=== PATIENT | male | born 2000 | race Asian ===

== ENCOUNTER 2024-01-26 18:28 | Emergency (ER) | payer OTHER, SELFPAY ==
[2024-01-26] VITALS (28 sets, daily range): BP systolic 128–137; BP diastolic 75–91; PULSE 94–130; RESP 20–56; TEMP 37.5; O2SAT 88–100
--- NOTE | ~2024-01-26 | CT_ITS ---
EXAMINATION: CTA chest PE abdomen pel DATE: 01/26/2024 21:14 INDICATION: Hemoptysis TECHNIQUE: Computed tomography (CT) pulmonary angiogram of the chest was performed with 100 mL Omnipa que-350 intravenous contrast. Additional 3D reconstructions utilizing coronal maximum intensity proje ction (MIP) were performed. CT of the abdomen and pelvis was performed with intravenous contrast util izing the same contrast bolus following a short delay. Automated exposure control and iterative recon struction technique were employed. The dose-length product was 1110.37 mGy-cm. COMPARISON: None FINDINGS: Chest: No evident pulmonary embolism. Sensitivity mildly decreased in the smaller subsegmental pulmonary art eries due to suboptimal timing of the contrast bolus. No pneumonia, pulmonary edema, pleural effusion or pneumothorax. Heart size is normal. No pericardial effusion. Thoracic aorta is normal in caliber with no dissection. No pathologically enlarged thoracic lymphadenopathy. Mild likely physiologic ante rior wedging at T11-L2. Abdomen/pelvis: Liver, gallbladder, spleen, pancreas, bilateral adrenal glands and kidneys are normal. There is some wall thickening in the proximal colon consistent with constipation. There is a large amount of fluid scattered throughout the colon extending to the rectum consistent with diarrhea. No bowel obstruction . Normal appendix. Bladder is normal. No free intraperitoneal gas or fluid. There are enlarged lymph nodes along the ileocolic chain the largest measuring 2.9 x 1.6 cm in maximal diameter. IMPRESSION: 1. No pulmonary embolism or other acute cardiopulmonary disease. 2. Wall thickening of the proximal colon suggestive of colitis with large amount of fluid throughout the colon consistent with diarrhea. 3. Ileocolic chain lymphadenopathy in the right abdomen most likely reactive related to colitis with differential including less likely lymphoma or metastatic disease. Reviewed, dictated and finalized at location A. IMPRESSION: 1. No pulmonary embolism or other acute cardiopulmonary disease. 2. Wall thickening of the proximal colon suggestive of colitis with large amoun t of fluid throughout the colon consistent with diarrhea. 3. Ileocolic chain lymphadenopathy in the right abdomen most likely reactive re lated to colitis with differential including less likely lymphoma or metastatic disease.
--- NOTE | ~2024-01-26 | CT_ITS ---
EXAMINATION: CT brain wo con DATE: 01/26/2024 21:04 INDICATION: Altered mental status TECHNIQUE: Computed tomography (CT) of the head was performed without intravenous contrast. Sagittal and coronal reconstructions were performed. The mA was adjusted according to patient size. Iterative reconstruction technique was employed. The dose-length product was 1110.37 mGy-cm. COMPARISON: None FINDINGS: No acute intracranial hemorrhage, acute infarction or abnormal extra axial fluid collection. Ventricl es are normal and symmetric. No mass/mass effect. Mild mucosal thickening in the left maxillary sinus . The orbits and mastoid air cells are normal. IMPRESSION: 1. Normal brain. No acute intracranial process. Reviewed, dictated and finalized at location A.
--- NOTE | 2024-01-26 19:00 | ECG_ITS ---
Test Date: 2024-01-26 19:15:38 Measurements Intervals [place] Rate: 105 P: 56 DC: 127 QRS: 16 QRSD: 107 T: 34 QT: 340 QTc: 450 Interpretive Statements SINUS TACHYCARDIA EARLY PRECORDIAL R/S TRANSITION MINIMAL Q WAVES- HIGH LATERAL LEADS BASELINE ARTIFACT- I, II, AVR, AVL, AVF, V1-V2 ABNORMAL ECG No previous ECG available for comparison Electronically Signed On 01-27-2024 08:00:40 CDT by Jamie Lan D.O.
--- NOTE | 2024-01-26 19:03 | ED.NAVMDI ---
HPI - Nausea/Vomiting/Diarrhea General Chief complaint: Nausea/Vomiting/Diarrhea <JULES Ramirez Last Filed: 01/30/24 09:11> Stated complaint: n/v/d, fever <Pat Mccormick PA-C - Last Filed: 01/30/24 09:11> Time Seen by Provider: 01/26/24 18:30 <Pat Mccormick PA-C - Last Filed: 01/30/24 09:11> History of Present Illness HPI Narrative: 23-year-old male with no past medical history presents to the emergency department with his roommates at bedside for diarrhea for 4 days. Patient is a poor historian. Remains assist with history at bedside. States he has had copious amounts of watery diarrhea for 4 days. He went to the [facility] where he had an outpatient stool sample performed. Unknown of the results. states he was prescribed an antibiotic but is unsure the name of the antibiotic. He is also reporting hemoptysis, subjective fevers, left midback pain when he takes a deep breath and moves. He is reporting generalized weakness. roommate's at bedside also note that the patient has been slow to respond today which is new. patient denies ETOH use, drug use, head injury trauma. Denies vision changes, focal numbness or weakness, chest pain shortness of breath. <Pat Mccormick PA-C - Last Filed: 01/30/24 09:11> Related Data Allergies/Adverse reactions: Allergies Allergy/AdvReac Type Severity Reaction Status Date / Time No Known Allergies Allergy Verified 01/26/24 19:00 <Pat Mccormick PA-C - Last Filed: 01/30/24 09:11> Review of Systems Review of Systems: All systems as dictated in HPI <JULES Aguilera Last Filed: 01/27/24 01:57> Exam Narrative: GENERAL: Nontoxic, NAD HEAD: Normocephalic, atraumatic. EYES: PERRLA and EOMI. ENT: Nares clear, no rhinorrhea or epistaxis. Mucous membranes dry NECK: Supple. No nuchal rigidity CHEST: Clear to auscultation. No respiratory distress. HEART: Regular rate and rhythm. No murmur heard. Normal peripheral pulses. ABDOMEN: normoactive bowel sounds. Abdomen soft with minimal tenderness in epigastrium. No rebound guarding rigidity. No CVA tenderness EXTREMITIES: Normal range of motion. No edema. SKIN: Warm, dry, no rash. NEURO: No focal deficits. Alert and oriented x3. Patient very slow to respond, speech is slowed <Pat Mccormick PA-C - Last Filed: 01/30/24 09:11> Course Course Emergency Course: Patient declines use of insurance healthcare consultant. I discussed that I wanted to ensure that we were both understanding each other, he again declines and states I can speak Romanian. <Pat Mccormick PA-C - Last Filed: 01/30/24 09:11> Patient declines use of insurance healthcare consultant. I discussed that I wanted to ensure that we were both understanding each other, he again declines and states I can speak Romanian. [place]: Lab work is coming back remarkable for significant non-anion gap metabolic acidosis, likely due to GI losses. This would explain his altered mental status and tachypnea. CTA chest abdomen pelvis coming back remarkable for severe colitis and reactive lymphadenopathy. The CT scan of the lungs are clear. moderate elevations in AST and ALT. Alk-phos is normal. Potassium is 3.1, potassium repletion started along with sepsis antibiotics. Head CT is normal We will contact [facility] transfer line due to patient's recent international travel, likely need for infectious disease and heme/onc. Was able to get in touch [facility] (Diagnostic Sales Specialist). he would recommend starting the patient on an amp of bicarb and isotonic D5W bicarb after the normal saline boluses. He does recommend having the patient transferred to [place] for admission to their ICU. 0145: he remains tachypneic with multiple re-evaluations. resting in the bed and maintaining airway. Vital signs holding steady, blood pressure in the 130s over 70s. Tachycardia nearly resolved with fluids. Pt has received broad-spectrum antib
[2024-01-26 19:30] LABS: Hematocrit 31.5 % (42.0-52.0); Immature Platelet Fraction Pct 9.1 % (0.9-11.2); Mean Corpuscular HGB Conc 34.9 g/dl (32-36); Mean Corpuscular Volume 80.2 fl (80-100); Platelet Count Result 66 k/mm3 (150-375); Red Blood Count 3.93 M/mm3 (4.6-6.20); Red Cell Distribution Width 13.6 % (11.5-14.5); White Blood Count 2.5 K/mm3 (4.5-10.0)
[2024-01-26] MEDS: ONDANSETRON INJ 4 MG/2 ML VIAL IV PUSH (19:36)
[2024-01-26] MEDS: SODIUM CHLORIDE 0.9% IV 1,000 ML 999 ML IV CONT ×3 (19:36→23:18)
[2024-01-26 19:37] LABS: Lipase 397 U/L (23-300)
[2024-01-26 19:37] LABS: Lactic Acid Reflex 0.9 mmol/L (0.7-2.0)
[2024-01-26] MEDS: PANTOPRAZOLE SODIUM IV 40 MG VIAL IV PUSH (19:37)
--- NOTE | 2024-01-26 19:43 | PC.NURSE ---
Report received from JORGE L Valladares. Assumed care of patient at this time.
[2024-01-26 19:44] LABS: Alanine Aminotransferase 205 U/L (6-50); Albumin Level 3.1 g/dL (3.5-5.1); Alkaline Phosphatase 44 U/L (38-126); Anion Gap 12 mmol/L (4-12); Aspartate Amino Transferase 377 U/L (17-59); Bilirubin,Total 0.6 mg/dL (0.2-1.3); Blood Urea Nitrogen 6 mg/dL (9-20); Calcium 7.5 mg/dL (8.4-10.2); Carbon Dioxide 12 mmol/L (22-30); Chloride 106 mmol/L (98-107); Estimated CRCL calculation 112 ml/min; Estimated Glomerular Filt Rate > 60; Glucose 101 mg/dL (65-110); Potassium 3.1 mmol/L (3.4-5.0); Sodium 130 mmol/L (137-145)
[2024-01-26 19:45] LABS: Amphetamine Screen Urine Negative (Negative); Barbiturate Screen Urine Negative (Negative); Benzodiazepines Screen Urine Negative (Negative); Cannabinoid Screen Urine Negative (Negative); Cocaine Screen Urine Negative (Negative); Methadone Screen Urine Negative (Negative); Opiate Screen Urine Negative (Negative); Phencyclidine Screen Urine Negative (Negative)
[2024-01-26 19:48] LABS: INR 1.4; Prothrombin Time 18.2 Seconds (11.1-14.7)
[2024-01-26 19:49] LABS: Troponin I 0.013 ng/mL (0.000-0.034)
[2024-01-26 19:54] LABS: Ethanol < 10 mg/dL (<10)
[2024-01-26 20:00] LABS: Add Urine Microscopic? YES
[2024-01-26 20:01] LABS: Appearance Urine Clear (Clear); Blood Urine 2+ (Negative); Color Urine Yellow (Yellow); Glucose Urine UA Negative (Negative); Ketones Urine Negative (Negative); Protein Urine 2+ mg/dL (Negative); Specific Grav Ur 1.025 (1.001-1.035); pH Urine 5.5 (5.0-9.0)
[2024-01-26 20:02] LABS: Bilirubin Urine Negative (Negative); Leukocyte Esterase Ur Negative LEU/UL (Negative); Nitrate Urine Negative (Negative); Urobilinogen Urine 0.2 mg/dL (<2.0)
[2024-01-26 20:05] LABS: Influenza A QL RT-PCR Negative (Negative); Influenza B QL RT-PCR Negative (Negative); SARS-CoV-2 RNA PCR Negative (Negative)
[2024-01-26 20:12] LABS: Band Neutrophils Percent 8 % (0-6); Lymphocytes Absolute Manual 0.52 K/mm3 (1.1-4.5); Monocytes Absolute Manual 0.12 K/mm3 (0.1-0.90); Monocytes Percent Manual 5 % (3-9); Neutrophils Absolute Manual 1.85 K/mm3 (1.3-6.7); Neutrophils Percent Manual 66 % (46-73); Platelet Estimate Decreased (Adequate); Total Cells Counted 100
[2024-01-26 20:13] LABS: Schistocytes None Seen
[2024-01-26 20:14] LABS: Thyroid Stimulating Hormone 0.312 uIU/mL (0.465-4.680)
--- NOTE | 2024-01-26 20:41 | PC.NURSE ---
Patient in ct at this time.
[2024-01-26 20:46] LABS: RBC Urine 0-2 /hpf (0-2); WBC Urine 0-5 /hpf (0-3)
--- NOTE | 2024-01-26 22:07 | PC.NURSE ---
attempts made to draw blood cultures and vbg by two staff members- unsuccessful at this time.
--- NOTE | 2024-01-26 22:10 | PC.NURSE ---
Macie from [facility] transfer center called with an update on vital signs focusing on spo2 at this time
[2024-01-26] MEDS: POTASSIUM CHLORIDE INJ 40 MEQ in SODIUM CHLORIDE 0.9% IV 500 ML 130 MEQ IVPB (22:52)
[2024-01-26] MEDS: PIPERACILLIN/TAZ 4.5G/NS 100ML 4.5 GM/100 ML BAG IVPB (22:52)
[2024-01-26 23:02] LABS: HIV 1/2 Ab P24 Ag Result Negative (Negative)
[2024-01-26 23:18] LABS: Fractional Inspired Oxygen 21 %; HCO3 VBG 9.7 mEq/l (24.0-30.0); PO2 VBG 46.8 mmHg (35.0-45.0); pH VBG 7.268 (7.300-7.400)
[2024-01-26] MEDS: SODIUM BICARBONATE 8.4% 50 MEQ/50 ML SYRINGE IV PUSH (23:18)
[2024-01-26] MEDS: VANCOMYCIN 1,750 MG/NS 500 ML 1,750 MG/500 ML BAG 250 MG IVPB (23:20)
[2024-01-26 23:21] LABS: PCO2 VBG 21.7 mmHg (42.0-48.0)
[2024-01-26] MEDS: SODIUM BICARBONATE 8.4% 100 MEQ in DEXTROSE 5% 1,000 ML 1,000 ML 50 MEQ IV CONT (23:23)
--- NOTE | 2024-01-26 23:34 | PC.NURSE ---
Patient report given to Sarah COATS at [facility]. The RN there is going to discuss with charge to cochran if the patient needs to be placed in a negative pressure room on their floor
[2024-01-27 00:01] VITALS: BP 123/77; PULSE 104; RESP 38; O2SAT 100
--- NOTE | 2024-01-27 00:02 | PC.NURSE ---
Macie COATS from [facility] called back, that they wanted the patient to go to a negative pressure room and the negative pressure room is not clean yet- that they would call and let us know when the room is clean and available for the patient.
[2024-01-27 00:21] LABS: Estimated CRCL calculation 112 ml/min; Estimated Glomerular Filt Rate > 60
[2024-01-27 00:46] VITALS: BP 127/75; PULSE 116; RESP 36; O2SAT 99
--- NOTE | 2024-01-27 01:10 | PC.NURSE ---
AT 0106 ON 01/27/2024 WEN COATS CALLED FROM [facility] CALLED AND GAVE ROOM #[id number] FOR THIS PT's ROOM ASSIGNMENT. WEN STATED THAT SHE HAD ALREADY REC'D REPORT FROM THE PREVIOUS NURSE AND WE ARE GOOD TO SET UP TRANSPORT. PRIMARY NURSE CANDY Walters RN MADE AWARE.
[2024-01-27 01:26] VITALS: BP 134/78; PULSE 111; RESP 40; TEMP 36.8; O2SAT 100
[2024-01-27 02:16] LABS: Toxigenic C. Diff NEGATIVE (NEGATIVE)
[2024-01-27 02:31] VITALS: BP 131/77; PULSE 99; RESP 42; O2SAT 100
[2024-01-27 03:01] VITALS: BP 131/77; PULSE 105; RESP 41; O2SAT 100
[2024-01-27 03:31] VITALS: BP 126/80; PULSE 114; RESP 45; O2SAT 100
== END 2024-01-27 03:45 | disposition short-term general hospital (02) ==
PROVIDERS: Physician Assistant; Emergency Provider Physician Assistant
DX: K52.9 Noninfective gastroenteritis and colitis, unspecified (principal); E87.20 Acidosis, unspecified; E78.89 Other lipoprotein metabolism disorders; D61.818 Other pancytopenia; R59.1 Generalized enlarged lymph nodes; Z20.822 Contact with and (suspected) exposure to COVID-19; R00.0 Tachycardia, unspecified
CPT/HCPCS: 36415; 70450; 71275; 74177; 80053; 80307; 81001; 82565; 82803; 83605; 83690; 84443; 84484; 85025; 85055; 85610; 85730; 86703; 87040; 87045; 87077; 87186; 87427; 87449; 87493; 87636; 93005; 96361; 96365; 96366; 96367; 96368; 96375; 99285; G0432; J2405; J2470; J2543; J3370; J3480; J7030; J7040; J7070; Q9967